=== PATIENT | male | born 1960 | race African-American/Black ===

== ENCOUNTER 2017-09-29 18:56 | Emergency (ER) | payer SELFPAY | END 2017-09-29 19:15 | disposition home or self-care (01) | LOC: NAV ERS 18:56 | DX: I10 Essential (primary) hypertension (principal); F17.210 Nicotine dependence, cigarettes, uncomplicated | CPT/HCPCS: 99283 ==

== ENCOUNTER 2018-06-13 20:23 | Emergency (ER) | payer SELFPAY ==
[2018-06-13 21:13] LABS: #Basophils 0.1 thou/uL (0.0-0.2); #Eosinphils 0.1 thou/uL (0.0-0.7); #Lymphocytes 1.7 thou/uL (1.20-3.40); #Monocytes 0.8 thou/uL (0.11-0.59); #Neutrophils 6.3 thou/uL (1.40-6.50); %Basophils 0.7 % (0.0-1.0); %Eosinophils 0.8 % (0.0-10.0); %Lymphocytes 18.9 % (21.0-51.0); %Monocytes 9.4 % (0.0-10.0); %Neutrophils 70.3 % (42.0-75.0); Hemoglobin 15.9 g/dL (14.0-18.0); Mean Corpuscular HGB CONC 30.8 g/dL (32.0-36.0); Mean Corpuscular Hemoglobin 28.2 pg (27.0-31.0); Mean Corpuscular Volume 91.6 fL (78.0-98.0); Mean Platelet Volume 11.7 fL (7.4-10.4); RBC Distribution Width 12.1 % (11.5-14.5); Red Blood Cell (RBC) Count 5.63 mill/uL (4.70-6.10)
[2018-06-13 21:14] LABS: ALT (SGPT) 40 U/L (8-55); AST (SGOT) 59 U/L (5-34); Albumin 4.5 g/dL (3.5-5.0); Alcohol 395 mg/dL (Less than 10); Alkaline Phosphatase 89 U/L (40-150); Anion Gap 17 mmol/L (10-20); BUN (Urea Nitrogen) 20 mg/dL (8.4-25.7); Bilirubin, Total 0.6 mg/dL (0.2-1.2); Calc. Creatinine Clearance 0 mL/min (70-130); Calcium 10.9 mg/dL (7.8-10.44); Carbon Dioxide 25 mmol/L (22-29); Chloride 100 mmol/L (98-107); Estimated GFR-MDRD Greater than 90; Globulin 6.9 g/dL (2.4-3.5); Glucose 107 mg/dL (70-105); Potassium 3.6 mmol/L (3.5-5.1); Protein, Total 11.4 g/dL (6.0-8.3); Sodium 138 mmol/L (136-145)
[2018-06-13 21:34] LABS: Platelet Count 45 thou/uL (130-400)
== END 2018-06-13 21:47 ==
LOC: NAV ERS 20:23
DX: F10.129 Alcohol abuse with intoxication, unspecified (principal); F17.210 Nicotine dependence, cigarettes, uncomplicated
CPT/HCPCS: 36416; 80053; 80307; 85025; 99283

== ENCOUNTER 2020-11-07 14:52 | Emergency (ER) | payer SELFPAY ==
[2020-11-07 15:40] LABS: #Basophils 0.1 thou/uL (0.0-0.2); #Eosinphils 0.1 thou/uL (0.0-0.7); #Monocytes 0.5 thou/uL (0.11-0.59); #Neutrophils 2.4 thou/uL (1.40-6.50); %Basophils 1.5 % (0.0-1.0); %Lymphocytes 39.6 % (21.0-51.0); %Monocytes 9.1 % (0.0-10.0); %Neutrophils 47.9 % (42.0-75.0); Hemoglobin 10.3 g/dL (14.0-18.0); Mean Corpuscular HGB CONC 30.5 g/dL (32.0-36.0); Mean Corpuscular Hemoglobin 30.1 pg (27.0-31.0); Mean Corpuscular Volume 98.9 fL (78.0-98.0); Mean Platelet Volume 8.9 fL (7.4-10.4); Platelet Count 60 thou/uL (130-400); RBC Distribution Width 14.1 % (11.5-14.5); Red Blood Cell (RBC) Count 3.42 mill/uL (4.70-6.10); White Blood Cell (WBC) Count 4.9 thou/uL (4.8-10.8)
[2020-11-07 15:44] LABS: Acetaminophen Less than 6.0 mcg/mL (10.0-30.0); CK (CPK) 38 U/L (30-200); Salicylate Less than 8.0 mg/dL (15.0-30.0)
[2020-11-07 15:46] LABS: ALT (SGPT) 48 U/L (8-55); AST (SGOT) 170 U/L (5-34); Albumin 2.8 g/dL (3.5-5.0); Alkaline Phosphatase 172 U/L (40-110); Anion Gap 16 mmol/L (10-20); BUN (Urea Nitrogen) 10 mg/dL (8.4-25.7); Bilirubin, Total 0.6 mg/dL (0.2-1.2); Calc. Creatinine Clearance 0 mL/min (70-130); Calcium 8.2 mg/dL (7.8-10.44); Carbon Dioxide 23 mmol/L (22-29); Chloride 106 mmol/L (98-107); Globulin 6.3 g/dL (2.4-3.5); Glucose 88 mg/dL (70-105); Potassium 3.9 mmol/L (3.5-5.1); Protein, Total 9.1 g/dL (6.0-8.3); Sodium 141 mmol/L (136-145)
[2020-11-07] MEDS ORDERED: Thiamine HCl 200 MG/2 ML VIAL ONE (15:51)
[2020-11-07 15:52] LABS: Alcohol 499 mg/dL (Less than 10)
[2020-11-07] MEDS ORDERED: Sodium Chloride 0.9% 1,000 ML ONE (15:56)
== END 2020-11-07 18:00 | disposition home or self-care (01) ==
LOC: NAV ERS 14:52
DX: F10.129 Alcohol abuse with intoxication, unspecified (principal); F17.210 Nicotine dependence, cigarettes, uncomplicated
CPT/HCPCS: 80053; 80307; 82550; 85025; 96365; J3411; J7050

== ENCOUNTER 2021-01-15 14:42 | Emergency (ER) | payer SELFPAY ==
[2021-01-15] MEDS ORDERED: Sodium Chloride 0.9% 1,000 ML ONE (15:31)
[2021-01-15] MEDS ORDERED: Thiamine HCl 200 MG/2 ML VIAL ONE (15:31)
[2021-01-15 15:38] LABS: Hemoglobin 12.8 g/dL (14.0-18.0); Mean Corpuscular HGB CONC 31.1 g/dL (32.0-36.0); Mean Corpuscular Hemoglobin 27.6 pg (27.0-31.0); Mean Corpuscular Volume 88.7 fL (78.0-98.0); Mean Platelet Volume 9.5 fL (7.4-10.4); RBC Distribution Width 14.3 % (11.5-14.5); Red Blood Cell (RBC) Count 4.65 mill/uL (4.70-6.10); White Blood Cell (WBC) Count 10.3 thou/uL (4.8-10.8)
[2021-01-15 16:10] LABS: Manual Diff?? NO
[2021-01-15 16:11] LABS: #Basophils 0.1 thou/uL (0.0-0.2); #Monocytes 0.7 thou/uL (0.11-0.59); #Neutrophils 7.6 thou/uL (1.40-6.50); %Basophils 0.5 % (0.0-1.0); %Eosinophils 0.2 % (0.0-10.0); %Lymphocytes 18.8 % (21.0-51.0); %Monocytes 6.9 % (0.0-10.0); %Neutrophils 73.6 % (42.0-75.0); MDiff Complete? YES; Platelet Morphology Comment Appears Decreased
[2021-01-15 16:15] LABS: Platelet Count 18 thou/uL (130-400)
[2021-01-15 16:20] LABS: ALT (SGPT) 14 U/L (8-55); AST (SGOT) 32 U/L (5-34); Albumin 3.4 g/dL (3.5-5.0); Alkaline Phosphatase 74 U/L (40-110); Anion Gap 18 mmol/L (10-20); BUN (Urea Nitrogen) 14 mg/dL (8.4-25.7); Bilirubin, Total 1.2 mg/dL (0.2-1.2); CK (CPK) 57 U/L (30-200); Calc. Creatinine Clearance 0 mL/min (70-130); Calcium 8.9 mg/dL (7.8-10.44); Carbon Dioxide 21 mmol/L (22-29); Chloride 97 mmol/L (98-107); Globulin 6.2 g/dL (2.4-3.5); Glucose 114 mg/dL (70-105); Potassium 3.5 mmol/L (3.5-5.1); Protein, Total 9.6 g/dL (6.0-8.3); Sodium 132 mmol/L (136-145)
== END 2021-01-15 17:42 | disposition home or self-care (01) ==
LOC: NAV ERS 14:42
DX: M25.512 Pain in left shoulder (principal); D69.6 Thrombocytopenia, unspecified; F10.20 Alcohol dependence, uncomplicated; F17.210 Nicotine dependence, cigarettes, uncomplicated
CPT/HCPCS: 71045; 80053; 82550; 84484; 85025; 93005; 96365; 96366; J3411; J7050

== ENCOUNTER 2021-07-09 17:21 | Emergency (ER) | payer SELFPAY ==
[2021-07-10 22:59] LABS: SARS-CoV-2 PCR by NAA Not Detected (NotDetected)
== END 2021-07-09 17:55 | disposition home or self-care (01) ==
LOC: NAV ERS 17:21
DX: Z20.822 Contact with and (suspected) exposure to COVID-19 (principal); I10 Essential (primary) hypertension; F17.210 Nicotine dependence, cigarettes, uncomplicated
CPT/HCPCS: 99283; U0003; U0005